=== PATIENT | male | born 1945 | race Caucasian/White ===

== ENCOUNTER 2020-02-21 06:30 | Inpatient (IN) | payer MEDICARE ==
[~2020-02-21] VITALS: Ht 188 cm; Wt 93.1 kg
[~2020-02-21 06:30] MED LIST: AMLO10TA4 PO; DOCU-286 PO; FERR-71 MT; FOLI20CA PO; LEVO500T2 MT; METO25TA3 PO; METR500T PO; MULTIVITAMIN; PROBIOTIC; PSYL575P22 PO; SITA100T11 PO; TOPUD PO; [UNRECOGNIZED DRUG - OTHER]
[2020-02-21 07:43] LABS: CHLORIDE 108 mEq/L (98-107)
[2020-02-21 07:45] LABS: INR 1.1; PROTHROMBIN TIME 11.4 sec (9.6-11.0)
[2020-02-21 07:48] LABS: BASOPHILS % 0.9 % (0.0-2.0); EOSINOPHILS % 2.6 % (0.0-5.0); HEMOGLOBIN. 13.6 g/dL (14.0-18.0); LYMPHOCYTES % 16.6 % (20.0-50.0); MEAN CORPUSCULAR VOLUME 84.9 fL (80.0-94.0); MEAN PLATELET VOLUME 9.9 fl (7.4-10.4); MONOCYTES % 8.2 % (2.0-8.0); NEUTROPHILS % 71.7 % (40.0-76.0); PLATELET 132 x1000/uL (130-400); RED BLOOD CELL COUNT 4.71 mill/uL (4.7-6.1); RED CELL DISTRIBUTION WIDTH 15.4 % (11.6-14.6)
[2020-02-21] MEDS ORDERED: SORBITOL 70% SOLN 30ML PO ONE ×2 (10:15→13:00)
[2020-02-21 12:00] VITALS: BP 118/78
[2020-02-21] MEDS: DEXT 5%/0.45% NACL 1000ML 1,000 ML IV SCH ×2 (13:07→23:07)
[2020-02-21 13:23] VITALS: BP 141/75
[2020-02-21] MEDS ORDERED: NA PHOS,M-B/NA PHOS,DI-BA ENEMA 118ML PR ONE (13:30)
[2020-02-21] MEDS ORDERED: FENTANYL CITRATE/PF 50MCG/ML 2ML VIAL ONE (16:07)
[2020-02-21] MEDS ORDERED: MIDAZOLAM HCL 5 MG/5 ML VIAL ONE (16:07)
[2020-02-21] MEDS ORDERED: FENTANYL CITRATE/PF 50MCG/ML 2ML VIAL IV PRN (16:26)
[2020-02-21] MEDS ORDERED: MIDAZOLAM HCL 5 MG/5 ML VIAL IV PRN (16:27)
[2020-02-21 16:55] LABS: HEMATOCRIT 39.9 % (42.0-52.0); HEMOGLOBIN 13.7 g/dL (14.0-18.0)
[2020-02-21 20:33] VITALS: BP 124/81
[2020-02-22] VITALS: BP 132/79
[2020-02-22 00:54] LABS: HEMATOCRIT 37.5 % (42.0-52.0); HEMOGLOBIN 12.6 g/dL (14.0-18.0)
[2020-02-22 04:00] VITALS: BP 126/80
[2020-02-22 06:40] LABS: CHLORIDE 110 mEq/L (98-107)
[2020-02-22 06:50] LABS: BASOPHILS % 0.5 % (0.0-2.0); EOSINOPHILS % 1.5 % (0.0-5.0); HEMATOCRIT. 34.3 % (42.0-52.0); HEMOGLOBIN. 11.5 g/dL (14.0-18.0); MEAN CORPUSCULAR HEMOGLOBIN 28.4 pg (28.0-32.0); MEAN CORPUSCULAR VOLUME 84.8 fL (80.0-94.0); MEAN PLATELET VOLUME 10.3 fl (7.4-10.4); MONOCYTES % 11.1 % (2.0-8.0); NEUTROPHILS % 73.9 % (40.0-76.0); PLATELET 126 x1000/uL (130-400); RED BLOOD CELL COUNT 4.05 mill/uL (4.7-6.1); RED CELL DISTRIBUTION WIDTH 15.2 % (11.6-14.6)
[2020-02-22 08:00] VITALS: BP 127/75
[2020-02-22 12:00] VITALS: BP 112/71
[2020-02-22 14:25] VITALS: BP 112/71
== END 2020-02-22 15:00 | disposition home or self-care (01) | DRG 379 ==
LOC: ER 06:30 → 5WST 08:16 → ENRESERV 10:18
PROVIDERS: ADMIT Internal Medicine; ATTEND Internal Medicine
PROC: 0DJD8ZZ Inspection of Lower Intestinal Tract, Via Natural or Artificial Opening Endoscopic (ICD-10-PCS; principal; 2020-02-21)
DX: K57.31 Diverticulosis of large intestine without perforation or abscess with bleeding (principal); E11.9 Type 2 diabetes mellitus without complications; I10 Essential (primary) hypertension; K28.9 Gastrojejunal ulcer, unspecified as acute or chronic, without hemorrhage or perforation; K64.8 Other hemorrhoids; Z82.49 Family history of ischemic heart disease and other diseases of the circulatory system; Z91.048 Other nonmedicinal substance allergy status; Z79.2 Long term (current) use of antibiotics; Z79.899 Other long term (current) drug therapy; Z90.49 Acquired absence of other specified parts of digestive tract
CPT/HCPCS: 36415; 71045; 80053; 85014; 85018; 85025; 86850; 86900; 99285; J2250; J3010

== ENCOUNTER → 2023-09-19 | Outpatient (CLI) | payer MEDICARE | END | disposition home or self-care (01) | LOC: RAD 12:11 | PROVIDERS: ATTEND Internal Medicine Critical Care Medicine | DX: R05.9 Cough, unspecified (principal) | CPT/HCPCS: 71046 ==

== ENCOUNTER 2023-10-02 14:45 | Inpatient (IN) | payer MEDICARE ==
[~2023-10-02] VITALS: Ht 185.4 cm; Wt 100.5 kg
[~2023-10-02 14:45] MED LIST changes: +BICA50TA7 PO; +CHOL500010 PO; +LACT1CAP78 PO; -LEVO500T2 MT; +METF-416 PO; -METR500T PO; +MULT-1146 PO; -MULTIVITAMIN; +OMEP20TA15 PO; -PROBIOTIC; -PSYL575P22 PO; +TAMS-11 PO; -TOPUD PO; -[UNRECOGNIZED DRUG - OTHER]
[2023-10-02] MEDS ORDERED: DEXTROSE 50% WATER 50ML SYRINGE IV PRN ×2 (15:45→16:30)
[2023-10-02] MEDS ORDERED: ONDANSETRON HCL 4MG/2ML INJ IV PRN (16:15)
[2023-10-02] MEDS ORDERED: GUAIFENESIN 200MG/10ML SUGAR FREE UDC PO PRN (16:15)
[2023-10-02] MEDS ORDERED: NALOXONE HCL 0.4MG/ML 1ML VIAL IV PRN (16:15)
[2023-10-02] MEDS ORDERED: CLONIDINE 0.1MG TABLET PO PRN (16:30)
[2023-10-02 16:36] VITALS: BP 122/72; PULSE 88; RESP 18; TEMP 98.2
[2023-10-02] MEDS: INSULIN LISPRO 100 UNITS/ML SUBCUT SCH (17:00)
[2023-10-02] MEDS: ASPIRIN 325MG EC TABLET PO SCH (17:07)
[2023-10-02] MEDS: BLOOD SUGAR DIAGNOSTIC STRIP TEST SCH (17:07)
[2023-10-02] MEDS: METFORMIN HCL 500MG TABLET PO SCH (17:07)
[2023-10-02] MEDS: CEFAZOLIN 1000MG PREMIX 50 ML IV SCH (17:26)
[2023-10-02 18:20] VITALS: BP 122/72; PULSE 88; RESP 18; TEMP 98.2
[2023-10-02 20:00] VITALS: BP 114/71; PULSE 95; RESP 18; TEMP 97.8
[2023-10-02] MEDS: METOPROLOL TARTRATE 25MG TABLET PO SCH (20:39)
[2023-10-03] MEDS: HYDROCODONE/ACETAMINOPHEN 10/325MG TABLET PO PRN (06:10)
[2023-10-03 06:36] LABS: ALANINE AMINOTRANSFERASE 8 IU/L (10-49); ALBUMIN 3.7 g/dL (3.2-4.8); ASPARTATE AMINOTRANSFERASE 16 IU/L (<34); CALCIUM 8.7 mg/dL (8.7-10.4); CARBON DIOXIDE 26 mEq/L (21-32); CHLORIDE 99 mEq/L (98-107); CREATININE 0.4 mg/dL (0.6-1.3); GLUCOSE 134 mg/dL (70-105); POTASSIUM 3.8 mEq/L (3.5-5.1); PREALBUMIN 5.2 mg/dl (10.0-40.0); PROTEIN TOTAL 5.8 g/dL (6.0-8.3); SODIUM 134 mEq/L (136-145); UREA NITROGEN BLOOD 13 mg/dL (9-23)
[2023-10-03 07:22] LABS: HEMATOCRIT. 32.6 % (42.0-52.0); HEMOGLOBIN. 11.2 g/dL (14.0-18.0); MEAN CORPUSCULAR HEMOGLOBIN 30.2 pg (28.0-32.0); MEAN CORPUSCULAR HGB CONC 34.4 g/dL (31.0-37.0); MEAN CORPUSCULAR VOLUME 87.7 fL (80.0-94.0); MEAN PLATELET VOLUME 9.6 fl (7.4-10.4); PLATELET 194 x1000/uL (130-400); RED BLOOD CELL COUNT 3.71 mill/uL (4.7-6.1); RED CELL DISTRIBUTION WIDTH 14.1 % (11.6-14.6); WHITE BLOOD COUNT 6.8 x1000/uL (4.5-11.0)
[2023-10-03 07:39] LABS: DIFFERENTIAL COMMENT 1
[2023-10-03 08:00] VITALS: BP 98/55; PULSE 103; RESP 18; TEMP 99.9
[2023-10-03] MEDS: MULTIVITAMINS,THER W-MINERALS TABLET PO SCH (08:33)
[2023-10-03] MEDS: BICALUTAMIDE 50 MG TABLET PO SCH (08:33)
[2023-10-03] MEDS: TAMSULOSIN HCL 0.4MG SR CAPSULE PO SCH (08:33)
[2023-10-03] MEDS: DOCUSATE SODIUM 250MG CAPSULE PO SCH (08:34)
[2023-10-03] MEDS: POLYETHYLENE GLYCOL 3350 (17GM) 1 DOSE PACK PO SCH (08:34)
[2023-10-03] MEDS: AMLODIPINE 10MG TABLET PO SCH (08:46)
[2023-10-03] MEDS: ACETAMINOPHEN 325MG TABLET PO PRN (08:56)
[2023-10-03 14:33] LABS: PLATELET ESTIMATE NORMAL
[2023-10-03] MEDS: LACTULOSE 20G/30ML UDC PO SCH (15:08)
[2023-10-03 20:00] VITALS: BP 114/70; PULSE 104; RESP 18; TEMP 97
[2023-10-04 07:12] LABS: HEMATOCRIT. 33.3 % (42.0-52.0); HEMOGLOBIN. 11.4 g/dL (14.0-18.0); MEAN CORPUSCULAR HEMOGLOBIN 29.8 pg (28.0-32.0); MEAN CORPUSCULAR VOLUME 87.6 fL (80.0-94.0); MEAN PLATELET VOLUME 9.1 fl (7.4-10.4); PLATELET 240 x1000/uL (130-400); RED BLOOD CELL COUNT 3.81 mill/uL (4.7-6.1); RED CELL DISTRIBUTION WIDTH 14.1 % (11.6-14.6); WHITE BLOOD COUNT 5.9 x1000/uL (4.5-11.0)
[2023-10-04 07:22] LABS: DIFFERENTIAL COMMENT 1
[2023-10-04 07:35] LABS: CALCIUM 8.7 mg/dL (8.7-10.4); CARBON DIOXIDE 30 mEq/L (21-32); CHLORIDE 98 mEq/L (98-107); CREATININE 0.5 mg/dL (0.6-1.3); GLUCOSE 152 mg/dL (70-105); IRON 50 ug/dL (65-175); POTASSIUM 4.4 mEq/L (3.5-5.1); SODIUM 133 mEq/L (136-145); THYROID STIMULATING HORMONE 0.38 uIU/mL (0.55-4.78); TOTAL IRON BINDING CAPACITY 434 ug/dl (250-425); UREA NITROGEN BLOOD 17 mg/dL (9-23)
[2023-10-04 07:40] LABS: FERRITIN 109 ng/mL (22-322); FOLIC ACID (FOLATE) SERUM > 20.00 ng/mL (>5.38); VITAMIN B12 SERUM 202 pg/mL (211-911)
[2023-10-04 08:00] VITALS: BP 124/79; PULSE 86; RESP 18; TEMP 97.4
[2023-10-04] MEDS: ASPIRIN 81MG EC TABLET PO SCH (08:42)
[2023-10-04] MEDS ORDERED: AMLODIPINE 5MG TABLET PO SCH (09:00)
[2023-10-04] MEDS: FERROUS SULFATE 325MG TABLET PO SCH (12:54)
[2023-10-04] MEDS: CYANOCOBALAMIN 1000MCG/ML VIAL IM SCH (12:54)
[2023-10-04] MEDS: ASCORBIC ACID 500 MG TABLET PO SCH (12:54)
[2023-10-04 16:42] LABS: PLATELET ESTIMATE NORMAL
[2023-10-04 20:00] VITALS: BP 120/92; PULSE 95; RESP 18; TEMP 97.7
[2023-10-05 07:05] LABS: T4 FREE 1.27 ng/dL (0.89-1.76)
[2023-10-05 08:00] VITALS: BP 133/76; PULSE 86; RESP 20; TEMP 97.8
[2023-10-05] MEDS: LINAGLIPTIN 5MG TABLET PO SCH (08:32)
[2023-10-05] MEDS ORDERED: CYANOCOBALAMIN 100MCG TABLET PO SCH (09:00)
[2023-10-05] MEDS: HYDROCODONE/ACETAMINOPHEN 10/325MG TABLET PO PRN (10:10)
[2023-10-05 20:00] VITALS: BP 117/57; PULSE 98; RESP 16; TEMP 96.8
[2023-10-06 04:00] VITALS: BP 136/74; PULSE 81; RESP 16; TEMP 97.2
[2023-10-06 08:00] VITALS: BP 130/77; PULSE 85; RESP 18; TEMP 97.4
[2023-10-06 20:00] VITALS: BP 124/72; PULSE 88; RESP 18; TEMP 97.1
[2023-10-07] MEDS ORDERED: MELATONIN 3MG TABLET PO PRN (01:00)
[2023-10-07] MEDS ORDERED: NON FORMULARY PATIENT HOME MED XX SCH (01:00)
[2023-10-07 08:00] VITALS: BP 125/77; PULSE 82; RESP 20; TEMP 97.5
[2023-10-07] MEDS: DOCUSATE SODIUM 100MG CAPSULE PO PRN (09:05)
[2023-10-07] MEDS: ENOXAPARIN 40MG/0.4ML SYR SUBCUT SCH (14:18)
[2023-10-07 20:00] VITALS: BP 120/67; PULSE 89; RESP 18; TEMP 97.5
[2023-10-07] MEDS: HYDROCODONE/ACETAMINOPHEN 10/325MG TABLET PO PRN (23:12)
[2023-10-07] MEDS ORDERED: HYDROCODONE/ACETAMINOPHEN 10/325MG TABLET PO PRN (23:15)
[2023-10-07] MEDS ORDERED: NALOXONE HCL 0.4MG/ML VIAL IV PRN (23:15)
[2023-10-08 06:33] LABS: HEMATOCRIT. 29.8 % (42.0-52.0); HEMOGLOBIN. 10.6 g/dL (14.0-18.0); MEAN CORPUSCULAR HGB CONC 35.5 g/dL (31.0-37.0); MEAN CORPUSCULAR VOLUME 87.2 fL (80.0-94.0); MEAN PLATELET VOLUME 8.7 fl (7.4-10.4); PLATELET 253 x1000/uL (130-400); RED BLOOD CELL COUNT 3.42 mill/uL (4.7-6.1); RED CELL DISTRIBUTION WIDTH 14.1 % (11.6-14.6); WHITE BLOOD COUNT 6.4 x1000/uL (4.5-11.0)
[2023-10-08 06:47] LABS: DIFFERENTIAL COMMENT 1
[2023-10-08 07:12] LABS: CALCIUM 8.5 mg/dL (8.7-10.4); CARBON DIOXIDE 28 mEq/L (21-32); CHLORIDE 101 mEq/L (98-107); CREATININE 0.4 mg/dL (0.6-1.3); GLUCOSE 130 mg/dL (70-105); POTASSIUM 3.8 mEq/L (3.5-5.1); SODIUM 135 mEq/L (136-145); UREA NITROGEN BLOOD 14 mg/dL (9-23)
[2023-10-08 08:00] VITALS: BP 104/65; PULSE 100; RESP 18; TEMP 97.2
[2023-10-08 09:06] LABS: ANTI-PARIETAL CELL AB 3.8 Units (0.0-20.0)
[2023-10-08 10:52] LABS: PLATELET ESTIMATE NORMAL
[2023-10-08 20:00] VITALS: BP 140/75; PULSE 86; RESP 18; TEMP 97
[2023-10-09] MEDS: SENNOSIDES/DOCUSATE SOD 8.6/50MG TABLET PO PRN (05:40)
[2023-10-09 08:00] VITALS: BP 96/70; PULSE 101; RESP 18; TEMP 98.4
[2023-10-09 20:00] VITALS: BP 119/75; PULSE 102; RESP 18; TEMP 97.2
[2023-10-10 08:00] VITALS: BP 141/81; PULSE 80; RESP 20; TEMP 98.2
[2023-10-11 08:00] VITALS: BP 127/73; PULSE 82; RESP 20; TEMP 97.4
[2023-10-11 20:00] VITALS: BP 114/66; PULSE 80; RESP 20; TEMP 97
[2023-10-12 07:28] LABS: HEMATOCRIT 31.6 % (42.0-52.0); HEMOGLOBIN 10.7 g/dL (14.0-18.0); MEAN CORPUSCULAR HEMOGLOBIN 30.3 pg (28.0-32.0); MEAN CORPUSCULAR VOLUME 89.2 fL (80.0-94.0); PLATELET 253 x1000/uL (130-400); RED BLOOD CELL COUNT 3.54 mill/uL (4.7-6.1); RED CELL DISTRIBUTION WIDTH 14.2 % (11.6-14.6); WHITE BLOOD COUNT 6.2 x1000/uL (4.5-11.0)
[2023-10-12 07:52] LABS: CALCIUM 8.8 mg/dL (8.7-10.4); CARBON DIOXIDE 28 mEq/L (21-32); CHLORIDE 101 mEq/L (98-107); CREATININE 0.4 mg/dL (0.6-1.3); GLUCOSE 127 mg/dL (70-105); POTASSIUM 4.2 mEq/L (3.5-5.1); SODIUM 136 mEq/L (136-145); UREA NITROGEN BLOOD 16 mg/dL (9-23)
[2023-10-12 08:00] VITALS: BP 123/74; PULSE 83; RESP 19; TEMP 97.5
[2023-10-12 11:03] VITALS: BP 123/74; PULSE 83; TEMP 97.5; O2SAT 97
[2023-10-17] MEDS ORDERED: CYANOCOBALAMIN 1000MCG/ML VIAL IM SCH (09:00)
== END 2023-10-12 12:20 | disposition home health service (06) | DRG 554 ==
PROVIDERS: ADMIT Physical Medicine & Rehabilitation Spinal Cord Injury Medicine; ATTEND Hospitalist
DX: M17.0 Bilateral primary osteoarthritis of knee (principal); I50.32 Chronic diastolic (congestive) heart failure; E46 Unspecified protein-calorie malnutrition; E11.42 Type 2 diabetes mellitus with diabetic polyneuropathy; I25.10 Atherosclerotic heart disease of native coronary artery without angina pectoris; N40.0 Benign prostatic hyperplasia without lower urinary tract symptoms; I11.0 Hypertensive heart disease with heart failure; R53.81 Other malaise; E66.9 Obesity, unspecified; E53.8 Deficiency of other specified B group vitamins; E61.1 Iron deficiency; D64.9 Anemia, unspecified; E78.00 Pure hypercholesterolemia, unspecified; Z96.651 Presence of right artificial knee joint; K59.00 Constipation, unspecified; I95.9 Hypotension, unspecified; Z79.82 Long term (current) use of aspirin; Z85.46 Personal history of malignant neoplasm of prostate; Z91.81 History of falling; Z92.3 Personal history of irradiation; Z68.29 Body mass index [BMI] 29.0-29.9, adult; Z80.0 Family history of malignant neoplasm of digestive organs; Z80.52 Family history of malignant neoplasm of bladder; Z82.0 Family history of epilepsy and other diseases of the nervous system; Z82.49 Family history of ischemic heart disease and other diseases of the circulatory system; Z83.3 Family history of diabetes mellitus
CPT/HCPCS: 36415; 80048; 80053; 82306; 82533; 82607; 82728; 82746; 82962; 83036; 83520; 83540; 83550; 84134; 84439; 84443; 84481; 85025; 85027; 86340; 92523; 93005; 93970; 97110; 97116; 97162; 97166; 97530; 97535; J0690; J1650; J1815; J3420

== ENCOUNTER → 2024-04-30 | Outpatient (CLI) | payer MEDICARE ==
[~2024-04-30] MED LIST changes: -AMLO10TA4 PO; +AMLO5TAB88 PO; +DAPA5TAB PO; -SITA100T11 PO
== END | disposition home or self-care (01) ==
LOC: RAD 12:20
PROVIDERS: ATTEND Internal Medicine Critical Care Medicine
DX: K92.2 Gastrointestinal hemorrhage, unspecified (principal); M47.819 Spondylosis without myelopathy or radiculopathy, site unspecified
CPT/HCPCS: 71046

== ENCOUNTER 2024-05-07 20:06 | Inpatient (IN) | payer MEDICARE ==
[~2024-05-07] VITALS: Ht 188 cm; Wt 98.4 kg
[2024-05-07 19:30] VITALS: BP 124/73; PULSE 90; RESP 18; RESP 20; TEMP 36.50292; TEMP 36.6404; O2SAT 96
[~2024-05-07 20:06] MED LIST changes: +ATOR20TA65 PO; -FOLI20CA PO; +HYDR-4001 PO; +LOSA25TA26 PO; +OXYB-52 PO
[2024-05-07] MEDS ORDERED: IPRATROPIUM/ALBUTEROL 0.5-3(2.5)MG/3ML NEB HHN PRN (22:00)
[2024-05-07] MEDS ORDERED: ACETAMINOPHEN 500MG TABLET PO PRN (22:00)
[2024-05-07] MEDS ORDERED: ONDANSETRON HCL 4MG/2ML INJ IV PRN (22:00)
[2024-05-07] MEDS ORDERED: DEXTROSE 50% WATER 50ML SYRINGE IV PRN (22:00)
[2024-05-07] MEDS ORDERED: NALOXONE HCL 0.4MG/ML 1ML VIAL IV PRN (22:00)
[2024-05-07] MEDS: HYDROCODONE/ACETAMINOPHEN 5/325MG TABLET PO PRN (22:58)
[2024-05-08 00:42] LABS: CHLORIDE 102 mEq/L (98-107); POTASSIUM 3.5 mEq/L (3.5-5.1); SODIUM 134 mEq/L (136-145)
[2024-05-08 00:43] LABS: CALCIUM 8.6 mg/dL (8.7-10.4); CARBON DIOXIDE 26 mEq/L (21-32)
[2024-05-08 00:48] LABS: CREATININE 0.4 mg/dL (0.6-1.3); GLUCOSE 147 mg/dL (70-105); UREA NITROGEN BLOOD 16 mg/dL (9-23)
[2024-05-08 00:50] LABS: ALANINE AMINOTRANSFERASE 12 IU/L (10-49); ALBUMIN 3.5 g/dL (3.2-4.8); ASPARTATE AMINOTRANSFERASE 21 IU/L (<34)
[2024-05-08 00:51] LABS: BILIRUBIN TOTAL 0.9 mg/dL (0.1-1.0); PROTEIN TOTAL 5.7 g/dL (6.0-8.3)
[2024-05-08 05:45] LABS: BASOPHILS % 0.3 % (0.0-2.0); EOSINOPHILS % 8.3 % (0.0-5.0); HEMATOCRIT. 32.2 % (42.0-52.0); HEMOGLOBIN. 10.7 g/dL (14.0-18.0); LYMPHOCYTES % 7.1 % (20.0-50.0); MEAN CORPUSCULAR HEMOGLOBIN 29.6 pg (28.0-32.0); MEAN CORPUSCULAR HGB CONC 33.3 g/dL (31.0-37.0); MEAN PLATELET VOLUME 8.3 fl (7.4-10.4); MONOCYTES % 13.4 % (2.0-8.0); NEUTROPHILS % 70.9 % (40.0-76.0); PLATELET 164 x1000/uL (130-400); RED BLOOD CELL COUNT 3.62 mill/uL (4.7-6.1); RED CELL DISTRIBUTION WIDTH 14.1 % (11.6-14.6); WHITE BLOOD COUNT 5.8 x1000/uL (4.5-11.0)
[2024-05-08] MEDS: BLOOD SUGAR DIAGNOSTIC STRIP TEST SCH (05:53)
[2024-05-08 06:03] LABS: CHLORIDE 102 mEq/L (98-107); POTASSIUM 3.6 mEq/L (3.5-5.1); SODIUM 136 mEq/L (136-145)
[2024-05-08 06:06] LABS: CARBON DIOXIDE 27 mEq/L (21-32)
[2024-05-08 06:07] LABS: CALCIUM 8.5 mg/dL (8.7-10.4)
[2024-05-08 06:11] LABS: CREATININE 0.4 mg/dL (0.6-1.3); GLUCOSE 133 mg/dL (70-105); UREA NITROGEN BLOOD 17 mg/dL (9-23)
[2024-05-08 06:12] LABS: ALANINE AMINOTRANSFERASE 12 IU/L (10-49)
[2024-05-08 06:13] LABS: ALBUMIN 3.6 g/dL (3.2-4.8); ASPARTATE AMINOTRANSFERASE 21 IU/L (<34)
[2024-05-08 06:14] LABS: PROTEIN TOTAL 5.8 g/dL (6.0-8.3)
[2024-05-08 06:49] LABS: PREALBUMIN < 5.0 mg/dl (10.0-40.0)
[2024-05-08 08:00] VITALS: BP 123/68; PULSE 93; RESP 20; TEMP 36.22512; O2SAT 97
[2024-05-08] MEDS: INSULIN LISPRO 100 UNITS/ML SUBCUT SCH (09:00)
[2024-05-08] MEDS: METFORMIN HCL 500MG TABLET PO SCH (09:01)
[2024-05-08] MEDS: ASPIRIN 81MG TABLET PO SCH (09:01)
[2024-05-08] MEDS: HYDROCODONE/ACETAMINOPHEN 5/325MG TABLET PO PRN (09:02)
[2024-05-08] MEDS: TAMSULOSIN HCL 0.4MG SR CAPSULE PO SCH (09:03)
[2024-05-08] MEDS: SENNOSIDES/DOCUSATE SOD 8.6/50MG TABLET PO SCH (09:04)
[2024-05-08] MEDS: AMLODIPINE 5MG TABLET PO SCH (09:04)
[2024-05-08] MEDS: METOPROLOL TARTRATE 25MG TABLET PO SCH (09:04)
[2024-05-08] MEDS ORDERED: FURO20TA4 PO (12:23)
[2024-05-08] MEDS: FERROUS SULFATE 325MG TABLET PO SCH (17:09)
[2024-05-08 20:00] VITALS: BP 127/67; PULSE 96; RESP 18; TEMP 36.16956; O2SAT 97
[2024-05-09] MEDS: PANTOPRAZOLE 40MG DR TABLET PO SCH (06:36)
[2024-05-09] MEDS ORDERED: OMEPRAZOLE 20MG CAPSULE EXTENDED RELEASE PO SCH (07:00)
[2024-05-09 08:00] VITALS: BP 130/74; PULSE 84; RESP 18; TEMP 36.72516; O2SAT 97
[2024-05-09 08:17] LABS: HEMATOCRIT. 31.6 % (42.0-52.0); HEMOGLOBIN. 10.6 g/dL (14.0-18.0); MEAN CORPUSCULAR HEMOGLOBIN 29.9 pg (28.0-32.0); MEAN CORPUSCULAR HGB CONC 33.7 g/dL (31.0-37.0); MEAN CORPUSCULAR VOLUME 88.8 fL (80.0-94.0); MEAN PLATELET VOLUME 8.5 fl (7.4-10.4); PLATELET 177 x1000/uL (130-400); RED BLOOD CELL COUNT 3.56 mill/uL (4.7-6.1); RED CELL DISTRIBUTION WIDTH 14.2 % (11.6-14.6); WHITE BLOOD COUNT 5.8 x1000/uL (4.5-11.0)
[2024-05-09 08:22] LABS: CARBON DIOXIDE 28 mEq/L (21-32); CHLORIDE 102 mEq/L (98-107); POTASSIUM 3.7 mEq/L (3.5-5.1); SODIUM 135 mEq/L (136-145)
[2024-05-09 08:23] LABS: CALCIUM 8.8 mg/dL (8.7-10.4)
[2024-05-09 08:25] LABS: DIFFERENTIAL COMMENT 1
[2024-05-09 08:27] LABS: CREATININE 0.4 mg/dL (0.6-1.3); IRON 38 ug/dL (65-175)
[2024-05-09] MEDS: CHOLECALCIFEROL (D3) 1000 UNIT TABLET PO SCH (08:27)
[2024-05-09] MEDS: ATORVASTATIN CALCIUM 20MG TABLET PO SCH (08:27)
[2024-05-09 08:28] LABS: GLUCOSE 135 mg/dL (70-105); UREA NITROGEN BLOOD 16 mg/dL (9-23)
[2024-05-09 08:29] LABS: VITAMIN B12 SERUM 276 pg/mL (211-911)
[2024-05-09 08:30] LABS: FOLIC ACID (FOLATE) SERUM > 20.00 ng/mL (>5.38); TOTAL IRON BINDING CAPACITY 239 ug/dl (250-425)
[2024-05-09 08:32] LABS: FERRITIN 89 ng/mL (22-322)
[2024-05-09] MEDS: BICALUTAMIDE 50 MG TABLET PO SCH (09:00)
[2024-05-09] MEDS: LOSARTAN 25 MG TABLET PO SCH (09:42)
[2024-05-09] MEDS: OXYBUTYNIN CHLORIDE 5MG TABLET PO SCH (09:45)
[2024-05-09] MEDS: MULTIVITAMINS,THER W-MINERALS TABLET PO SCH (09:45)
[2024-05-09] MEDS: TAMSULOSIN HCL 0.4MG SR CAPSULE PO SCH (09:45)
[2024-05-09 11:18] LABS: PLATELET ESTIMATE NORMAL
[2024-05-09] MEDS: CYANOCOBALAMIN 1000MCG/ML VIAL IM SCH (16:12)
[2024-05-09] MEDS: ENOXAPARIN 30MG/0.3ML SYR SUBCUT SCH (17:41)
[2024-05-09] MEDS: FERROUS SULFATE 325MG TABLET PO SCH (17:42)
[2024-05-09 20:00] VITALS: BP 123/64; PULSE 89; RESP 18; TEMP 36.3918; O2SAT 96
[2024-05-10 08:00] VITALS: BP 124/74; PULSE 78; RESP 20; TEMP 36.72516; O2SAT 97
[2024-05-10] MEDS: ASCORBIC ACID 500 MG TABLET PO SCH (10:03)
[2024-05-10 20:00] VITALS: BP 104/64; PULSE 85; RESP 18; TEMP 37.05852; O2SAT 96
[2024-05-11 08:00] VITALS: BP 120/68; PULSE 96; RESP 18; TEMP 36.61404; O2SAT 99
[2024-05-11 08:14] VITALS: BP 120/68; PULSE 95; RESP 18; TEMP 36.61404; O2SAT 99
[2024-05-11 12:46] VITALS: BP 120/68; PULSE 95; TEMP 97.9; O2SAT 98
[2024-05-11 13:37] VITALS: BP 103/55; PULSE 82; RESP 18
== END 2024-05-11 15:05 | disposition home health service (06) | DRG 554 ==
PROVIDERS: ADMIT Physical Medicine & Rehabilitation Spinal Cord Injury Medicine; ATTEND Internal Medicine Critical Care Medicine
DX: M17.12 Unilateral primary osteoarthritis, left knee (principal); I50.32 Chronic diastolic (congestive) heart failure; I25.10 Atherosclerotic heart disease of native coronary artery without angina pectoris; R53.81 Other malaise; N40.0 Benign prostatic hyperplasia without lower urinary tract symptoms; E11.42 Type 2 diabetes mellitus with diabetic polyneuropathy; I11.0 Hypertensive heart disease with heart failure; E78.5 Hyperlipidemia, unspecified; F39 Unspecified mood [affective] disorder; J44.9 Chronic obstructive pulmonary disease, unspecified; G89.29 Other chronic pain; D50.9 Iron deficiency anemia, unspecified; K57.30 Diverticulosis of large intestine without perforation or abscess without bleeding; Z79.4 Long term (current) use of insulin; Z79.82 Long term (current) use of aspirin; Z79.899 Other long term (current) drug therapy; Z79.84 Long term (current) use of oral hypoglycemic drugs; Z82.49 Family history of ischemic heart disease and other diseases of the circulatory system; Z83.3 Family history of diabetes mellitus; Z90.49 Acquired absence of other specified parts of digestive tract; Z85.46 Personal history of malignant neoplasm of prostate; Z91.81 History of falling; Z92.3 Personal history of irradiation
CPT/HCPCS: 36415; 80048; 80053; 82306; 82607; 82728; 82746; 82962; 83036; 83540; 83550; 84134; 84443; 85025; 92523; 93971; 97110; 97116; 97162; 97166; 97530; 97535; A6261; J1650; J1815; J3420

== ENCOUNTER 2025-06-24 22:20 | Inpatient (IN) | payer MEDICARE ==
[~2025-06-24] VITALS: Ht 188 cm; Wt 86.2 kg
[2025-06-24 22:20] VITALS: BP 94/59; PULSE 87; RESP 18; TEMP 36.4; TEMP 36.418; O2SAT 100
[~2025-06-24 22:20] MED LIST changes: -CHOL500010 PO; -DOCU-286 PO; -FERR-71 MT; +FURO20TA4 PO; -LACT1CAP78 PO; -TAMS-11 PO; +TAMS-54 PO
[2025-06-24] MEDS ORDERED: NALOXONE HCL 0.4MG/ML 1ML VIAL IV PRN (23:30)
[2025-06-24] MEDS ORDERED: ACETAMINOPHEN 325MG TABLET PO PRN (23:30)
[2025-06-24] MEDS ORDERED: BISACODYL 10MG SUPP PR PRN (23:30)
[2025-06-24] MEDS ORDERED: SENNOSIDES/DOCUSATE SOD 8.6/50MG TABLET PO PRN (23:30)
[2025-06-24] MEDS ORDERED: DEXTROSE 50% WATER 50ML SYRINGE IV PRN (23:45)
[2025-06-25] MEDS ORDERED: ONDANSETRON HCL 4MG/2ML INJ IV PRN (00:06)
[2025-06-25] MEDS ORDERED: DIPHENHYDRAMINE 50MG/ML VIAL IV PRN (00:06)
[2025-06-25] MEDS: BLOOD SUGAR DIAGNOSTIC STRIP TEST SCH (06:29)
[2025-06-25] MEDS: INSULIN LISPRO 100 UNITS/ML SUBCUT SCH (06:45)
[2025-06-25 08:00] VITALS: BP 111/72; PULSE 74; RESP 18; TEMP 36.1; O2SAT 97
[2025-06-25 08:26] LABS: HEMATOCRIT. 40.2 % (42.0-52.0); HEMOGLOBIN. 13.4 g/dL (14.0-18.0); MEAN PLATELET VOLUME 9.3 fl (7.4-10.4); PLATELET 139 x1000/uL (130-400); RED BLOOD CELL COUNT 4.34 mill/uL (4.7-6.1); RED CELL DISTRIBUTION WIDTH 14.0 % (11.6-14.6)
[2025-06-25 08:39] LABS: CREATININE 0.4 mg/dL (0.6-1.3)
[2025-06-25 08:41] LABS: ASPARTATE AMINOTRANSFERASE 10 IU/L (<34); BILIRUBIN TOTAL 1.4 mg/dL (0.1-1.0); UREA NITROGEN BLOOD 15 mg/dL (9-23)
[2025-06-25 08:43] LABS: PROTEIN TOTAL 5.5 g/dL (6.0-8.3)
[2025-06-25] MEDS: POLYETHYLENE GLYCOL 3350 (17GM) 1 DOSE PACK PO SCH (09:00)
[2025-06-25] MEDS: METOPROLOL TARTRATE 25MG TABLET PO SCH (10:18)
[2025-06-25] MEDS: HYDROCODONE/ACETAMINOPHEN 5/325MG TABLET PO PRN (10:18)
[2025-06-25] MEDS: PANTOPRAZOLE SODIUM 40 MG/VIAL IV SCH (10:18)
[2025-06-25] MEDS ORDERED: IPRATROPIUM/ALBUTEROL 0.5-3(2.5)MG/3ML NEB HHN PRN (13:15)
[2025-06-25 20:00] VITALS: BP 108/62; PULSE 69; RESP 20; TEMP 36.1; O2SAT 98
[2025-06-26 08:00] VITALS: BP 123/84; PULSE 76; RESP 20; TEMP 36.1; O2SAT 98
[2025-06-26 08:20] LABS: HEMATOCRIT. 39.0 % (42.0-52.0); HEMOGLOBIN. 13.0 g/dL (14.0-18.0); MEAN PLATELET VOLUME 9.7 fl (7.4-10.4); PLATELET 158 x1000/uL (130-400); RED BLOOD CELL COUNT 4.25 mill/uL (4.7-6.1); RED CELL DISTRIBUTION WIDTH 13.9 % (11.6-14.6)
[2025-06-26 08:22] LABS: CREATININE 0.4 mg/dL (0.6-1.3)
[2025-06-26 08:23] LABS: UREA NITROGEN BLOOD 14 mg/dL (9-23)
[2025-06-26 08:24] LABS: ASPARTATE AMINOTRANSFERASE 9 IU/L (<34)
[2025-06-26 08:25] LABS: BILIRUBIN TOTAL 1.1 mg/dL (0.1-1.0); PROTEIN TOTAL 5.4 g/dL (6.0-8.3)
[2025-06-26 08:29] LABS: VITAMIN B12 SERUM 368 pg/mL (211-911)
[2025-06-26 08:30] LABS: FOLIC ACID (FOLATE) SERUM 17.13 ng/mL (>5.38)
[2025-06-26] MEDS: PANTOPRAZOLE 40MG DR TABLET PO SCH (08:41)
[2025-06-26 12:00] VITALS: BP 132/90; PULSE 80; RESP 20; TEMP 36.7
[2025-06-26 12:39] LABS: BAND% 6.0 % (1.0-6.0); EOSINOPHILS % MANUAL 2.0 % (0.0-5.0); LYMPHOCYTES % MANUAL 16.0 % (20.0-50.0); MONOCYTES % MANUAL 8.0 % (2.0-8.0); NEUTROPHILS % MANUAL 68.0 % (45.0-75.0); PLATELET ESTIMATE NORMAL
[2025-06-26] MEDS: PSYLLIUM SEED PACKET PO SCH (13:25)
[2025-06-26 17:15] LABS: EOSINOPHILS % MANUAL 2.0 % (0.0-5.0); LYMPHOCYTES % MANUAL 6.0 % (20.0-50.0); MONOCYTES % MANUAL 12.0 % (2.0-8.0); NEUTROPHILS % MANUAL 80.0 % (45.0-75.0)
[2025-06-26 17:16] LABS: PLATELET ESTIMATE NORMAL
[2025-06-26] MEDS ORDERED: NA PHOS,M-B/NA PHOS,DI-BA ENEMA 118ML PR NR (18:30)
[2025-06-26] MEDS ORDERED: BISACODYL 10MG SUPP PR PRN (18:30)
[2025-06-26] MEDS: LACTULOSE 20G/30ML UDC PO SCH (18:42)
[2025-06-26 20:00] VITALS: BP 108/70; PULSE 69; RESP 20; TEMP 36.2; O2SAT 98
[2025-06-27 08:00] VITALS: BP 130/74; PULSE 135; RESP 18; TEMP 36.3; O2SAT 98
[2025-06-27] MEDS: ASCORBIC ACID 500 MG TABLET PO SCH (08:27)
[2025-06-27] MEDS: FERROUS SULFATE 325MG TABLET PO SCH (08:29)
[2025-06-27] MEDS: CYANOCOBALAMIN 1000MCG/ML VIAL IM SCH (09:00)
[2025-06-27 10:00] VITALS: PULSE 117
[2025-06-27] MEDS: METFORMIN HCL 500MG TABLET PO SCH (11:00)
[2025-06-27] MEDS: INSULIN LISPRO 100 UNITS/ML SUBCUT SCH (13:14)
[2025-06-27] MEDS: METOPROLOL SUCCINATE 25MG ER TABLET PO SCH (13:19)
[2025-06-27 13:22] VITALS: BP 119/86; PULSE 121
[2025-06-27] MEDS: SORBITOL 70% SOLN 30ML PO NR (14:19)
[2025-06-27] MEDS ORDERED: SODIUM CHLORIDE 0.9% 1,000 ML IV SCH (16:30)
[2025-06-27 20:00] VITALS: BP 108/71; PULSE 134; RESP 18; TEMP 36.6; O2SAT 95
[2025-06-27] MEDS: ONDANSETRON 4MG ODT PO PRN (20:05)
[2025-06-27] MEDS: NA PHOS,M-B/NA PHOS,DI-BA ENEMA 118ML PR PRN (21:28)
[2025-06-28] VITALS: BP 125/87; PULSE 95; RESP 17; TEMP 36.1; O2SAT 96
[2025-06-28 04:00] VITALS: BP 130/85; PULSE 96; RESP 18; TEMP 36.7; O2SAT 96
[2025-06-28 08:00] VITALS: BP 127/82; PULSE 94; RESP 18; TEMP 36.6; O2SAT 98
[2025-06-28 20:00] VITALS: BP 117/78; PULSE 135; RESP 17; TEMP 35.9; O2SAT 97
[2025-06-29] VITALS: BP 139/96; PULSE 96; RESP 19; TEMP 36.2; O2SAT 96
[2025-06-29] MEDS: POLYETHYLENE GLYCOL 3350 (17GM) 1 DOSE PACK PO PRN (06:43)
[2025-06-29 08:00] VITALS: BP 117/94; PULSE 94; RESP 18; TEMP 36.1; O2SAT 97
[2025-06-29] MEDS: ACETAMINOPHEN 325MG TABLET PO PRN (19:48)
[2025-06-29 20:00] VITALS: BP 115/59; PULSE 95; RESP 18; TEMP 36.2; O2SAT 95
[2025-06-30 08:00] VITALS: BP 115/77; PULSE 98; RESP 17; TEMP 36.8; O2SAT 96
[2025-06-30 20:00] VITALS: BP 116/84; PULSE 93; RESP 18; TEMP 36.6; O2SAT 96
[2025-07-01 08:00] VITALS: BP 113/77; PULSE 100; RESP 18; TEMP 36.7; O2SAT 97
[2025-07-01] MEDS ORDERED: NALOXONE HCL 0.4MG/ML VIAL IV PRN (08:00)
[2025-07-01] MEDS: HYDROCODONE/ACETAMINOPHEN 5/325MG TABLET PO PRN (09:36)
[2025-07-01] MEDS ORDERED: PROCHLORPERAZINE 10MG/2ML VIAL IM PRN (13:30)
[2025-07-01] MEDS ORDERED: LACTOBACILLUS RHAMNOSUS GG CAP PO SCH (15:30)
[2025-07-01] MEDS ORDERED: METOCLOPRAMIDE HCL 10MG/2ML VIAL IV SCH (16:00)
[2025-07-01] MEDS: METOCLOPRAMIDE HCL 5MG TABLET PO SCH (17:05)
[2025-07-01 20:00] VITALS: BP 106/78; PULSE 113; RESP 20; TEMP 36.5; O2SAT 94
[2025-07-02] MEDS ORDERED: ONDANSETRON HCL 4MG/2ML INJ IV PRN (02:00)
[2025-07-02] MEDS: DEXT 5%/0.9% NACL 1,000 ML IV SCH (02:41)
[2025-07-02] MEDS ORDERED: PANTOPRAZOLE 40MG DR TABLET PO SCH (07:00)
[2025-07-02] MEDS ORDERED: SODIUM CHLORIDE 0.9% 1,000 ML IV SCH (07:30)
[2025-07-02 08:00] VITALS: BP 90/64; PULSE 58; RESP 25; TEMP 35.7; O2SAT 95
[2025-07-02 08:23] LABS: UREA NITROGEN BLOOD 32 mg/dL (9-23)
[2025-07-02 08:24] LABS: BASOPHILS % 0.2 % (0.0-2.0); EOSINOPHILS % 0.2 % (0.0-5.0); HEMATOCRIT. 43.5 % (42.0-52.0); HEMOGLOBIN. 14.3 g/dL (14.0-18.0); LYMPHOCYTES % 10.6 % (20.0-50.0); MEAN PLATELET VOLUME 9.0 fl (7.4-10.4); MONOCYTES % 7.6 % (2.0-8.0); NEUTROPHILS % 81.4 % (40.0-76.0); PLATELET 180 x1000/uL (130-400); RED BLOOD CELL COUNT 4.61 mill/uL (4.7-6.1); RED CELL DISTRIBUTION WIDTH 14.1 % (11.6-14.6)
[2025-07-02 08:25] LABS: PHOSPHORUS 5.5 mg/dL (2.5-4.9)
[2025-07-02] MEDS ORDERED: IPRATROPIUM BROMIDE (0.02%) 0.5MG/2.5ML NEB HHN SCH (08:45)
[2025-07-02 08:48] LABS: CREATININE 1.5 mg/dL (0.6-1.3)
[2025-07-02] MEDS ORDERED: PANTOPRAZOLE SODIUM 40 MG/VIAL IV SCH (09:00)
[2025-07-02] MEDS ORDERED: SODIUM CHLORIDE 0.9% 1,000 ML IV ONE (09:45)
[2025-07-02] MEDS ORDERED: NOREPINEPHRINE 8MG/250ML PMX 250 ML IV PRN (10:00)
[2025-07-02] MEDS ORDERED: MAGNESIUM 2 G PREMIX 50 ML IV NR (10:00)
[2025-07-02] MEDS ORDERED: PHENYLEPHRINE 50MG/250ML PMX 250 ML IV PRN (10:00)
[2025-07-02 10:11] LABS: BG BASE EXCESS -19.1 mmol/L (-2.0-3.0); BG CARBOXYHEMOGLOBIN 1.1 % (0.5-1.5); BG DEOXYHEMOGLOBIN 4.4 % (0.0-5.0); BG FRACTION INSPIRED OXYGEN 100; BG HCO3 ACT 15.7 mmol/L (21.0-28.0); BG METHEMOGLOBIN 0.1 % (0.5-1.5); BG OXYGEN SATURATION 95.5 % (94.0-98.0); BG OXYHEMOGLOBIN 94.4 % (94.0-98.0); BG PCO2 86.7 mmHg (35.0-48.0); BG PH 6.875 (7.350-7.450); BG PO2 125.2 mmHg (83.0-108.0); BG SAMPLE SITE LEFT RADIAL; BG TOTAL HEMOGLOBIN 14.4 g/dL (13.5-17.5); BG VENT MODE VENT - AC
[2025-07-02] MEDS ORDERED: EPINEPHRINE 5 MG in SODIUM CHLORIDE 0.9% 245 ML IV PRN (10:30)
== END 2025-07-02 10:50 | DRG 559 ==
PROVIDERS: ADMIT Physical Medicine & Rehabilitation Spinal Cord Injury Medicine; ATTEND Student in an Organized Health Care Education/Training Program
PROC: 0BH17EZ Insertion of Endotracheal Airway into Trachea, Via Natural or Artificial Opening (ICD-10-PCS; principal; 2025-07-02)
PROC: 5A1935Z Respiratory Ventilation, Less than 24 Consecutive Hours (ICD-10-PCS; 2025-07-02)
DX: S12.090D Other displaced fracture of first cervical vertebra, subsequent encounter for fracture with routine healing (principal); G82.50 Quadriplegia, unspecified; J95.821 Acute postprocedural respiratory failure; G99.2 Myelopathy in diseases classified elsewhere; K56.7 Ileus, unspecified; I50.30 Unspecified diastolic (congestive) heart failure; I11.0 Hypertensive heart disease with heart failure; J44.89 Other specified chronic obstructive pulmonary disease; E11.42 Type 2 diabetes mellitus with diabetic polyneuropathy; K76.0 Fatty (change of) liver, not elsewhere classified; D64.9 Anemia, unspecified; E66.01 Morbid (severe) obesity due to excess calories; K91.89 Other postprocedural complications and disorders of digestive system; N17.9 Acute kidney failure, unspecified; S12.190D Other displaced fracture of second cervical vertebra, subsequent encounter for fracture with routine healing; S12.290D Other displaced fracture of third cervical vertebra, subsequent encounter for fracture with routine healing; S12.390D Other displaced fracture of fourth cervical vertebra, subsequent encounter for fracture with routine healing; S12.490D Other displaced fracture of fifth cervical vertebra, subsequent encounter for fracture with routine healing; S12.590D Other displaced fracture of sixth cervical vertebra, subsequent encounter for fracture with routine healing; S12.690D Other displaced fracture of seventh cervical vertebra, subsequent encounter for fracture with routine healing; R53.1 Weakness; I25.10 Atherosclerotic heart disease of native coronary artery without angina pectoris; D17.71 Benign lipomatous neoplasm of kidney; E78.5 Hyperlipidemia, unspecified; I89.0 Lymphedema, not elsewhere classified; K40.20 Bilateral inguinal hernia, without obstruction or gangrene, not specified as recurrent; K80.20 Calculus of gallbladder without cholecystitis without obstruction; N40.0 Benign prostatic hyperplasia without lower urinary tract symptoms; R53.81 Other malaise; R25.2 Cramp and spasm; N40.2 Nodular prostate without lower urinary tract symptoms; R00.0 Tachycardia, unspecified; Y83.8 Other surgical procedures as the cause of abnormal reaction of the patient, or of later complication, without mention of misadventure at the time of the procedure; E55.9 Vitamin D deficiency, unspecified; Z96.653 Presence of artificial knee joint, bilateral; E61.1 Iron deficiency; Z91.81 History of falling; Z92.3 Personal history of irradiation; Z90.49 Acquired absence of other specified parts of digestive tract; Z83.3 Family history of diabetes mellitus; Z85.46 Personal history of malignant neoplasm of prostate; Z68.24 Body mass index [BMI] 24.0-24.9, adult; V47.5XXD Car driver injured in collision with fixed or stationary object in traffic accident, subsequent encounter; Z79.82 Long term (current) use of aspirin; Z82.49 Family history of ischemic heart disease and other diseases of the circulatory system
CPT/HCPCS: 36415; 36600; 74018; 80048; 80053; 82306; 82375; 82607; 82728; 82746; 82805; 82962; 83036; 83540; 83550; 83735; 84100; 84134; 84443; 85025; 92610; 97110; 97116; 97150; 97162; 97166; 97530; 97535; A4606; J1815; J2470; J2765; J3420; J3490; J7030; J8597; Q0162

== ENCOUNTER 2025-07-02 10:51 | Inpatient (IN) | payer MEDICARE | END 2025-07-02 11:09 | DRG 189 | LOC: MICUSO 10:51 | PROVIDERS: ADMIT Internal Medicine; ATTEND Internal Medicine | PROC: 5A12012 Performance of Cardiac Output, Single, Manual (ICD-10-PCS; principal; 2025-07-02) | DX: J96.01 Acute respiratory failure with hypoxia (principal); I46.9 Cardiac arrest, cause unspecified; J44.9 Chronic obstructive pulmonary disease, unspecified; E11.9 Type 2 diabetes mellitus without complications; I11.9 Hypertensive heart disease without heart failure; I25.10 Atherosclerotic heart disease of native coronary artery without angina pectoris; Z85.46 Personal history of malignant neoplasm of prostate; Z96.653 Presence of artificial knee joint, bilateral ==